=== PATIENT | female | born 1965 | race Caucasian/White ===

== ENCOUNTER 2017-06-12 16:19 | Emergency (ER) | payer OTHER ==
[~2017-06-12] VITALS: Ht 165.1 cm; Wt 69.3 kg
[~2017-06-12 16:19] MED LIST: IBUPROFEN800 MG PO; PRENATAL TABLE1 EAC3 PO
[2017-06-12] MEDS ORDERED: NORCO 10/3251 TABLET PO (21:03)
[2017-06-12] MEDS ORDERED: ZOFRAN ODT4 MG PO (21:03)
[2017-06-12 21:39] VITALS: BP 100/57
== END 2017-06-12 21:39 | disposition home or self-care (01) ==
LOC: EME → EDBD 16:19 → EME 21:39
PROC: 0PSHXZZ Reposition Right Radius, External Approach (ICD-10-PCS; principal; 2017-06-12)
PROC: 2W3CX1Z Immobilization of Right Lower Arm using Splint (ICD-10-PCS; 2017-06-12)
DX: S52.571A Other intraarticular fracture of lower end of right radius, initial encounter for closed fracture (principal); S52.611A Displaced fracture of right ulna styloid process, initial encounter for closed fracture; W19.XXXA Unspecified fall, initial encounter
CPT/HCPCS: 73100; 73110; 99281; 99284; J1885; J2405; J3010